=== PATIENT | male | born 1990 | race African-American/Black ===

== ENCOUNTER 2022-06-13 18:34 | Emergency (ER) | payer OTHER ==
[~2022-06-13] VITALS: Ht 175.3 cm; Wt 72.6 kg
[2022-06-13 18:35] VITALS: BP 122/73
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
== END 2022-06-13 18:51 ==
LOC: MED 18:34
DX: Z02.89 Encounter for other administrative examinations (principal)
CPT/HCPCS: 99283